=== PATIENT | male | born 1940 | race Caucasian/White ===

== ENCOUNTER 2019-10-09 11:42 | Inpatient (IN) | payer MEDICARE ==
[2019-10-09] MEDS ORDERED: Aspirin TAB* 325 MG PO ONE (12:11)
--- NOTE | 2019-10-09 12:22 | ED ---
Abdominal Pain/Male - HPI Summary HPI Summary: This patient is an 79 y/o male presenting to [facility] c/o abdominal pain. Patient states yesterday he had pain in the epigastric area/lower chest area. He notes he also developed nausea and vomiting yesterday. Today patient states he has mild pain in his right upper abdomen. Patient reports he was sent to the ED by his primary care provider because he was told he had a small heart attack. Patient denies fever, chills, shortness of breath, headache. Home Medications Medication Instructions Recorded Confirmed Type Dulaglutide (NF) [Trulicity (NF)] 0.5 ml SUBCUT WEEKLY 10/09/19 10/09/19 History Empagliflozin (NF) [Jardiance (Nf)] 10 mg PO QAM 10/09/19 10/09/19 History Insulin Detemir [Levemir Flextouch 50 units SUBCUT DAILY 10/09/19 10/09/19 History 100 units/ml 3 ml x 5 Pens] Losartan/Hydrochlorothiazide 1 tab PO DAILY 10/09/19 10/09/19 History [Losartan Potassium/Hydroc 100-12.5 mg] Omeprazole (Nf) [Prilosec (NF)] 40 mg PO BID 10/09/19 10/09/19 History Rosuvastatin (NF) [Crestor (NF)] 40 mg PO DAILY 10/09/19 10/09/19 History Venlafaxine EXT RELEASE CAP* 37.5 mg PO DAILY 10/09/19 10/09/19 History [Effexor Xr CAP*] glipiZIDE TAB* [Glucotrol TAB*] 2.5 mg PO QPM 10/09/19 10/09/19 History glipiZIDE TAB* [Glucotrol TAB*] 5 mg PO BID 10/09/19 10/09/19 History metFORMIN* [Glucophage 500 MG TAB 1,500 mg PO .WITH EVENING MEAL 10/09/19 History *] - History of Current Complaint Chief Complaint: EDShortnessOfBreath Stated Complaint: FEVER, SORE THROAT Hx Obtained From: Patient Onset/Duration: Lasting Days - 1, Still Present Timing: Lasting Days - 1 Severity Currently: Mild Pain Scale Used: 0-10 Numeric Location: Other - right upper quadrant Radiates: No Aggravating Factor(s): Nothing Alleviating Factor(s): Nothing Associated Signs And Symptoms: Positive: Chest Pain, Nausea, Vomiting. Negative : Fever, Other - NEGATIVE: shortness of breath, headache - Allergies/Home Medications Allergies/Adverse Reactions: Allergies Allergy/AdvReac Type Severity Reaction Status Date / Time Penicillins Allergy Rash Verified 10/09/19 12:38 Home Medications: Home Medications Dulaglutide (NF) [Trulicity (NF)] 0.5 ml SUBCUT WEEKLY 10/09/19 [History Confirmed 10/09/19] Empagliflozin (NF) [Jardiance (Nf)] 10 mg PO QAM 10/09/19 [History Confirmed ] Insulin Detemir [Levemir Flextouch 100 units/ml 3 ml x 5 Pens] 50 units SUBCUT DAILY 10/09/19 [History Confirmed 10/09/19] Losartan/Hydrochlorothiazide [Losartan Potassium/Hydroc 100-12.5 mg] 1 tab PO DAILY 10/09/19 [History Confirmed 10/09/19] Omeprazole (Nf) [Prilosec (NF)] 40 mg PO BID 10/09/19 [History Confirmed ] Rosuvastatin (NF) [Crestor (NF)] 40 mg PO DAILY 10/09/19 [History Confirmed ] Venlafaxine EXT RELEASE CAP* [Effexor Xr CAP*] 37.5 mg PO DAILY 10/09/19 [ History Confirmed 10/09/19] glipiZIDE TAB* [Glucotrol TAB*] 2.5 mg PO QPM 10/09/19 [History Confirmed ] glipiZIDE TAB* [Glucotrol TAB*] 5 mg PO BID 10/09/19 [History Confirmed 10/09/19 ] metFORMIN* [Glucophage 500 MG TAB *] 1,500 mg PO .WITH EVENING MEAL 10/09/19 [ History Confirmed 10/09/19] Atorvastatin* [Lipitor 80 MG*] 80 mg PO DAILY tab 10/10/19 [Rx] HYDROmorphone INJ1* [Dilaudid INJ1S*] 1.5 mg IV SLOW PU Q4H PRN syringe [Rx] Insulin GLARGINE(*) [Lantus 100 units/ml 10 ml VIAL (*)] 40 units SUBCUT Q24H unit 10/10/19 [Rx] Insulin LISPRO* [HumaLOG 100 units/ml 3 ml VIAL *] 0 units SUBCUT ACHS unit [Rx] Pantoprazole TAB * [Protonix TAB*] 40 mg PO BID tab 10/10/19 [Rx] Venlafaxine EXT RELEASE CAP* [Effexor Xr CAP*] 37.5 mg PO DAILY cap.sr [Rx] Zosyn per Pharmacy* 1 note FOLLOW UP .ZOSYN PER PHARMACY note 10/10/19 [Rx] PMH/Surg Hx/FS Hx/Imm Hx Previously Healthy: No - PMHx of obesity Endocrine/Hematology History: Reports: Hx Diabetes - type 2, Other Endocrine/ Hematological Disorders - hypomagnesemia Cardiovascular History: Reports: Hx Hypercholesterolemia, Hx Hypertension History: Reports: Hx Benign Prostatic Hyperplasia Infectious Disease History: Denies: Traveled Outside the [place] in Last 30 Days - Family History Known Family History: Negative: Cardiac Disease - Social History Alcohol Use: None Alcohol Amount: quit drinking in 2007 Substance Use Type: Reports: None Smoking Status (MU): Never Smoked Tobacco Review of Systems Negative: Fever, Chills Positive: Chest Pain Negative: Shortness Of Breath Positive: Abdominal Pain, Vomiting, Nausea Negative: Headache All Other Systems Reviewed And Are Negative: Yes Physical Exam - Summary Physical Exam Summary: VITAL SIGNS: Reviewed. GENERAL: Patient is a well-developed and nourished male who is lying comfortable in the stretcher. Patient is not in any acute respiratory distress. HEAD AND FACE: No signs of trauma. No ecchymosis, hematomas or skull depressions. No sinus tenderness. EYES: PERRLA, EOMI x 2, No injected conjunctiva, no nystagmus. EARS: Hearing grossly intact. Ear canals and tympanic membranes are within normal limits. MOUTH: Oropharynx within normal limits. NECK: Supple, trachea is midline, no adenopathy, no JVD, no carotid bruit, no c- spine tenderness, neck with full ROM. CHEST: Symmetric, no tenderness at palpation LUNGS: Clear to auscultation bilaterally. No wheezing or crackles. CVS: Regular rate and rhythm, S1 and S2 present, no murmurs or gallops appreciated. ABDOMEN: Soft, mild tenderness in the right upper quadrant. No signs of distention. No rebound no guarding, and no masses palpated. Bowel sounds are normal. EXTREMITIES: FROM in all major joints, no edema, no cyanosis or clubbing. NEURO: Alert and oriented x 3. No acute neurological deficits. Speech is normal and follows commands. SKIN: Dry and warm Triage Information Reviewed: Yes Vital Signs On Initial Exam: Initial Vitals Pulse BP Pulse Ox 113 132/71 93 10/09/19 12:37 10/09/19 12:37 10/09/19 12:37 Temperature: 99.2 F temporal Vital Signs Reviewed: Yes Procedures - Sedation Patient Received Moderate/Deep Sedation with Procedure: No Diagnostics - Laboratory Result Diagrams: 10/10/19 05:41 10/10/19 05:41 Lab Statement: Any lab studies that have been ordered have been reviewed, and results considered in the medical decision making process. - Radiology Chest XR Radiology Interpretation Completed By: Radiologist Summary of Radiographic Findings: IMPRESSION: Elevation of the right hemidiaphragm suggestive of diaphragmatic paralysis. Dr. Ricketts has reviewed this report. - Ultrasound No standard instances Ultrasound Interpretation Completed By: Radiologist Summary of Ultrasound Findings: Abdomen US IMPRESSION: #. Biliary sludge in the gallbladder with mild gallbladder wall thickening and small volume of pericholecystic fluid. No visualized gallstones. #. Negative for sonographic Duran's sign. #. Negative for biliary dilatation. #. Hepatosteatosis. Dr. Ricketts has reviewed this report. - EKG 1233 Cardiac Rate: Tachycardia - at 114 bpm EKG Rhythm: Sinus Tachycardia EKG Comparison: Other - No previous EKG for comparison Summary of EKG Findings: EKG at 1233 shows sinus tachycardia at a rate of 114 bpm. No STEMI. Q waves in leads III, aVF, V1-V3. Inverted T wave in V6. No old EKG for comparison. This EKG was interpreted and reviewed by ED physician. Re-Evaluation - Re-Evaluation First Eval Re-Evaluation Time: 15:20 Comment: Surgical PAReza, in to see patient. Abdominal Pain Male Course/Dx - Course Assessment/Plan: This patient is an 79 y/o male presenting to [facility] c/o abdominal pain. Patient states yesterday he had pain in the epigastric area/ lower chest area. He notes he also developed nausea and vomiting yesterday. Today, patient states he has mild pain in his right upper abdomen. Patient reports he was sent to the ED by his primary care provider because he was told he had a small heart attack. Patient denies fever, chills, shortness of breath, headache. In the ED course the patient was placed in a sheriffs officer, IV access was obtained, IV fluids were started. Past medical records reviewed. CXR impression: Elevation of the right diaphragm suggestive of diaphragmatic paralysis. Blood test w/o a significant abnormality except for WBCs of 20.4, absolute neutrophils is 18.6, sodium 130, chloride 94, BUN is 26, creatinine 1.53, glucose is 284, magnesium is 1.2, total bilirubin is 3, CRP is 264.69. RUQ U/S IMPRESSION: #. Biliary sludge in the gallbladder with mild gallbladder wall thickening and small volume of pericholecystic fluid. No visualized gallstones. #. Negative for sonographic Duran's sign. #. Negative for biliary dilatation. #. Hepatosteatosis. At 2:36 PM I discussed the case with Dr. Todd, surgeon, and he will come to see the patient in the ED. GISELA Thayer, working with Dr. Todd assessed the patient and recommends admission to the hospitalist since there is not an immediate need for surgery. At 3:42 PM: I discussed my physical exam and test results with Dr. Soares from the hospitalist services and she agrees to admit the patient to her services. The patient is hemodynamically stable. - Diagnoses Provider Diagnoses: Acute cholecystitis - Provider Notifications Discussed Care Of Patient With: Edward Todd Time Discussed With Above Provider: 14:30 Instructed by Provider To: Other - Discussed with Dr. Todd, surgeon, who will come see patient in the ED. [15:41] Discussed with Dr. Soares, hospitalist, who accepted the patient for admission. - Critical Care Time Critical Care Statement: Critical care time is provided exclusive of any time spent performing procedures. Discharge ED - Sign-Out/Discharge Documenting (check all that apply): Patient Departure - Admit to [facility] - Discharge Plan Condition: Stable Disposition: ADMITTED TO [facility] - Billing Disposition and Condition Condition: STABLE Disposition: Admitted to [facility] - Attestation Statements Document Initiated by Scribe: Yes Documenting Scribe: Nancy Gonzalez Provider For Whom Scribe is Documenting (Include Credential): Adam Ricketts MD Scribe Attestation: I, Nancy Gonzalez, scribed for Adam Ricketts MD on 10/10/19 at 1223. Scribe Documentation Reviewed: Yes Provider Attestation: The documentation as recorded by the scribe, Nancy Gonzalez accurately reflects the service I personally performed and the decisions made by me, Adam Ricketts MD Status of Scribe Document: Viewed
[2019-10-09 13:17] LABS: ABS Basophils 0.1 10^3/ul (0-0.2); ABS Lymphocytes 0.7 10^3/ul (1.0-4.8); ABS Neutrophils 18.6 10^3/ul (1.5-7.7); Eosinophil % 0.1 %; Hematocrit 46 % (42-52); Hemoglobin 15.6 g/dL (14.0-18.0); Lymphocyte % 3.6 %; Mean Corpuscular HGB Conc 34 g/dL (31-36); Mean Corpuscular Hemoglobin 28 pg (27-31); Mean Corpuscular Volume 82 fL (80-94); Mean Platelet Volume 7.8 fL (7.4-10.4); Nucleated Red Blood Cells % 0.1; Platelet Count 221 10^3/uL (150-450); Red Blood Count 5.59 10^6 /uL (4.18-5.48); Red Cell Distribution Width 13 % (10-15); White Blood Count 20.4 10^3/uL (3.5-10.8)
[2019-10-09 13:29] LABS: ALT 18 U/L (7-52); AST 15 U/L (13-39); Albumin 3.6 g/dL (3.2-5.2); Albumin/Globulin Ratio 1.1 (1-3); Alkaline Phosphatase 62 U/L (34-104); Anion Gap 10 mmol/L (2-11); Blood Urea Nitrogen 26 mg/dL (6-24); CO2 Carbon Dioxide 26 mmol/L (22-32); Chloride 94 mmol/L (101-111); Creatine Kinase 100 U/L (10-223); EGFR African American 53.3 (>60); Globulin 3.2 g/dL (2-4); Glucose 284 mg/dL (70-100); Magnesium 1.2 mg/dL (1.9-2.7); Potassium 3.6 mmol/L (3.5-5.0); Sodium 130 mmol/L (135-145); Total Protein 6.8 g/dL (6.4-8.9)
[2019-10-09 13:32] LABS: Troponin I 0.01 ng/mL (<0.03)
[2019-10-09 13:34] LABS: CKMB ng/mL 2.3 ng/mL (0.6-6.3)
[2019-10-09] MEDS ORDERED: Magnesium Sulfate 1 GM IV* 1 GM/100 ML BAG IV ONE (13:50)
[2019-10-09 13:58] LABS: TSH (Thyroid Stimulating Horm) 1.17 mcIU/mL (0.34-5.60)
[2019-10-09] MEDS ORDERED: NS 0.9% 1000 ML** 1,000 ML IV SCH (14:00)
[2019-10-09 14:04] LABS: C Reactive Protein 264.69 mg/L (<8.01)
[2019-10-09 14:53] LABS: Amylase 17 U/L (29-103)
[2019-10-09 16:01] LABS: Urine Appearance Cloudy; Urine Bilirubin Negative (Negative); Urine Blood 1+ (Negative); Urine Color Yellow; Urine Glucose 3+(>=500 mg/dL) (Negative); Urine Ketones Trace (Negative); Urine Nitrite Negative (Negative); Urine Protein 2+(100 mg/dL) (Negative); Urine Specific Gravity 1.021 (1.010-1.030); Urine Urobilinogen Positive (Negative)
--- NOTE | 2019-10-09 16:03 | PN ---
Progress Note - Progress Note Date of Service: 10/09/19 Note: Brief Surgery Note: (full consult dictated) S: 79 yo male w/ sudden onset of midepigastric pain Tuesday pm (after eating chicken wings earlier in the day). This then moved to the RUQ where it has remained. Associated w/ nausea and vomiting Tuesday, but not since. He was seen in his PCP (Dr. Loera) office yesterday and was told to come to the ED by ambulance 2/2 ECG changes. He is not sure why he didn't come, but ultimately came in today because of persistent pain. His pain is actually better today ( only 1-2/10, though worse w/ deep breath, vs 10/10 pain on Tuesday). He denies fever/chills. No prior similar episodes. No change in the color of urine or stool. No prior abd surgery. PMHx: DM (> 15 yr, w/ most recent A1C of ~ 10); HTN; HLD; GERD; OA of lower back , hips, knees, shoulders; depression. Denies cardiac hx. O: T 99.2 BP 127/75 P 105- 112 R 19 Gen: WN WD male, appears younger than stated age, in NAD Heart: tachy, but reg Lungs: clear Abd: obese; +BS; soft; moderate tenderness w/ pos Duran sign RUQ. No masses or organomegaly. Reducible nontender umb hernia. Labs: WBC 20.4 Hgb 15.6 lytes: Na 130 K 3.6 Mg 1.2 BUN 26 creat 1.53 gluc 284 LA 1.4 t bili 3 (other LFTs nl); amylase & lipase nl US: GB "sludge" w/ wall thickening at 4 mm and a small amt of pericholecystic fluid; CBD nl at 4 mm ECG w/ Q waves and T wave changes but no prior for comparison (trop and CK normal) A: acute cholecystitis P: admission (to [facility] [place]); IV abx; clear liqs; repeat labs in a.m. Discussed w/ Dr. Todd, who will also see patient. Patient understands and agrees. He also understands the potential for surgical intervention (lap benny) either acutely if no improvement, or in the future on a semi-elective basis.
[2019-10-09 16:13] LABS: Urine Bacteria Absent (Absent); Urine Granular Casts Present (Absent); Urine Red Blood Cell Trace(0-2/hpf) (Absent); Urine Squamous Epithelial Cell Present (Absent); Urine White Blood Cell Trace(0-5/hpf) (Absent)
[2019-10-09] MEDS ORDERED: Piperacillin/Tazobac ADVAN(*) 3.375 GM in NS 0.9% 100 ML* 100 ML IVPB ONE (16:31)
[2019-10-09] MEDS ORDERED: Dextrose 50% Syringe 50 ML* 25 GM/50 ML SYRINGE IV PUSH PRN (16:34)
[2019-10-09] MEDS ORDERED: Morphine INJ* 2 MG/ML 1 ML SYRINGE (TWO MG - NEW SYRINGE VERSION) IV PRN (16:43)
[2019-10-09] MEDS ORDERED: Magnesium Sulfate 2 GM IV* 2 GM/50 ML BAG IVPB ONE (16:45)
[2019-10-09] MEDS ORDERED: Zosyn per Pharmacy* NOTE FOLLOW UP SCH ×2 (17:00)
--- NOTE | 2019-10-09 17:30 | CONS ---
CC: Dr. Loera, [place]* SURGICAL CONSULT NOTE: DATE OF CONSULT: 10/09/19 ATTENDING SURGEON: Dr. Edward Todd. CHIEF COMPLAINT: Abdominal pain. HISTORY OF PRESENT ILLNESS: This is an 79-year-old male who states that Tuesday evening he noted sudden onset of abdominal pain in the epigastric region. This was severe (up to 10/10) and steady and was associated with both nausea and some limited vomiting on Tuesday. He previously had some chicken wings to eat earlier in the day. He denies fever or chills. He denies diarrhea. He did have normal bowel movement a couple of days ago. He presented to his PCP office yesterday, at which time EKG changes suggested an acute cardiac problem and he was advised to come to the ED by ambulance. He refused. Because of persistent symptoms, he presented to the ED today. He states that at the present time pain at rest is approximately 1- 2/10, though worse if he takes a deep breath or with palpation. He denies any similar previous episodes. He has not noted any change in the color of his urine or stools. He denies any symptoms. There is no definite known family history of gallbladder disease. He has not had any prior abdominal surgeries. PAST MEDICAL HISTORY: Type 2 diabetes for greater than 15 years (he states that his most recent A1c was around 10). He is also treated for hypertension, GERD, hyperlipidemia, and depression. He has a history of osteoarthritis of the lower back as well as hips, knees, and shoulders. He denies history of heart disease, asthma, COPD, or personal history of cancer. 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 Dumont last week for evaluation of same with tentative procedure or biopsy planned possibly for this week). CURRENT MEDICATIONS AT HOME: 1. Dulaglutide 0.5 mL subcutaneously once weekly. 2. Empagliflozin 10 mg once daily. 3. Insulin detemir 50 units q.p.m. 4. Glipizide 5 mg b.i.d. 5. Metformin 500 mg b.i.d. 6. Losartan/HCTZ 100/12.5 once daily. 7. Omeprazole 40 mg b.i.d. 8. Rosuvastatin 40 mg once daily. 9. Venlafaxine extended release 37.5 mg once daily. DRUG ALLERGIES: PENICILLIN (reaction not specified). FAMILY HISTORY: Negative for gallbladder disease. SOCIAL HISTORY: The patient is . He previously worked in a [employer]. He denies use of tobacco. He used to drink alcohol excessively at times, but not in recent years. He denies use of recreational drugs. REVIEW OF SYSTEMS: General: As above. Weight has been stable. No other recent constitutional or acute symptoms. Skin: No recent rashes or lesions. HEENT: Recently seen by Dr. Dumont regarding evaluation of laryngeal polyps. No other acute problems reported. Cardiovascular: As above. No additions. Respiratory: No additions. GI: As above. : No additions. Endocrine: Type 2 diabetes. No history of thyroid dysfunction. PHYSICAL EXAM: Height 6 feet 1 inch, weight 201 pounds, temperature 99.2, blood pressure 127/75, pulse 105 to 112, respirations 19, room air saturation 94 %. General: Well-nourished, well-developed male, in no acute distress, appearing fairly comfortable and younger than his stated age of 79. Skin: Warm and dry. No suspicious rashes or lesions. HEENT: Pupils are equal, round , and reactive. EOMs intact. No conjunctival pallor or scleral icterus. Oropharynx: Teeth in good repair. No intraoral lesions. Neck: No lymphadenopathy, thyromegaly, or masses. Heart: Regular rate and rhythm. Mildly tachycardic. No murmur appreciated. Lungs: Clear to auscultation. No rales or wheezes. Abdomen: Mildly obese. Bowel sounds present. Small, nontender, reducible umbilical hernia. Abdomen is generally soft, but with moderate tenderness in the right upper quadrant and positive Duran sign. No palpable masses or organomegaly. No palpable hernias other than at the umbilicus. Back: No spinous process or CVA tenderness. Extremities: No edema. Neurological: Grossly intact, though he is not always consistent in his history. DIAGNOSTIC STUDIES/LAB DATA: Of note, white blood cell count 20,400, hemoglobin 15.6, hematocrit 46. Electrolytes notable for sodium of 130, potassium of 3.6, chloride of 94, magnesium of 1.2, lactic acid is normal at 1.4 , BUN and creatinine are elevated at 26 and 1.53, glucose is 284. CRP is 265. Total bilirubin is 3 (no previous for comparison). Other liver function tests are normal as are amylase and lipase. Troponin is 0.01, CK-MB is normal at 2.3. Diagnostic imaging includes a chest x-ray showing elevated right hemidiaphragm. Ultrasound of the right upper quadrant shows gallbladder sludge with gallbladder wall thickening of 4.3 mm and a small amount of pericholecystic fluid. There is slight increased echogenicity of the liver. The common bile duct is normal at 4 mm. IMPRESSION: Acute cholecystitis. PLAN: Case was discussed with Dr. Todd as well as Dr. Soares. He will be admitted to the hospitalist service with initiation of IV antibiotics as well as pain control and management of his diabetes and medical comorbidities. Repeat lab work in the morning with serial abdominal exams. Hopefully, the patient will improve with medical management at the present time. He understands that if he is not improving he may require surgical intervention acutely during this admission (i.e., laparoscopic cholecystectomy) and/or cholecystectomy may be recommended at a later date. GISELA BURKS [id number]/[facility] #: [id number] MOUNIKA
[2019-10-09] MEDS: NS 0.9% 1000 ML** 1,000 ML IV SCH ×2 (17:49→22:18)
--- NOTE | 2019-10-09 18:44 | HP ---
CC: Dr. Loera* HISTORY AND PHYSICAL: DATE OF ADMISSION: 10/09/19 TIME OF ADMISSION: 4:30 p.m. PRIMARY CARE PHYSICIAN: Dr. Loera. CHIEF COMPLAINT: Abdominal pain. HISTORY OF PRESENT ILLNESS: This is an 79-year-old male with a history of diabetes and hypertension, who presents to the emergency department with 2 days of abdominal pain. The pain started Tuesday night and he localized the pain to the epigastric area and right upper quadrant without radiation. He had eaten ham and wings for Easter dinner, and shortly after that, developed nausea and vomiting associated with the pain. He was able to sleep, and the following day , he went to his primary care physician's office who got an EKG and instructed him to come to the emergency department due to concerns of a myocardial infarction. He declined, he went home and continued to have pain, but had no further nausea and vomiting. He localized the pain again to the right upper quadrant without radiation. It was not associated with diarrhea or fevers or any further nausea and vomiting. This morning, Dr. Dumont's nurse called him because he was supposed to see Dr. Dumont regarding a laryngeal mass biopsy and she instructed him to come to the emergency department. PAST MEDICAL HISTORY: 1. Type 2 diabetes. 2. Hypertension. 3. 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 4. Hyperlipidemia. PAST SURGICAL HISTORY: He has history of throat polyps 15 years ago that were removed. No other surgeries. MEDICATIONS: Home medications he takes: 1. Detemir 50 units in the evening. 2. Trulicity 0.5 mL weekly. 3. Jardiance 10 mg daily. 4. Glipizide 7.5 mg in the evening and 5 mg in the morning. 5. Losartan plus HCTZ 100/12.5 mg daily. 6. Metformin 1500 mg daily. 7. Omeprazole 40 mg b.i.d. 8. Rosuvastatin 40 mg daily. 9. Venlafaxine 37.5 mg daily. ALLERGIES: PENICILLIN. FAMILY HISTORY: Significant for an unknown type of cancer. SOCIAL HISTORY: He never smoked tobacco. He does not drink alcohol. He lives with his , Veronica, who is his healthcare proxy. He is full code. REVIEW OF SYSTEMS: He denies fevers, chills, chest pain, shortness of breath, weight gain, weight loss, sick contacts. The remainder of the review of systems is as per the HPI. PHYSICAL EXAMINATION GENERAL: Alert, well-appearing man who appears younger than stated age. VITAL SIGNS: Temperature 99.2, heart rate 101, respiratory rate 19, pulse ox 95 % on room air, blood pressure 143/79. HEENT: Pupils equal, round, and reactive to light. Oral mucosa is very dry. Voice is hoarse. NECK: No JVP or adenopathy. CHEST: He is mildly tachycardic with no murmurs. His lungs are clear bilaterally. ABDOMEN: Soft, tender in the right upper quadrant with a positive Duran's sign. No CVA tenderness. Bowel sounds are normoactive. EXTREMITIES: No edema, rashes, or ulcers. NEUROLOGIC: He is oriented and appropriate. Occasionally forgetful. Strength is 5/5 in all extremities. DIAGNOSTIC STUDIES/LAB DATA: White blood cells 20.4, hemoglobin 15.6, and platelets 221. PTT 37. Sodium 130, potassium 3.6, chloride 94, BUN 26, creatinine 1.53, glucose 284. Lactic acid 1.4. Total bilirubin 3, magnesium 1.2. CRP 264.69. Troponin 0.01, 0.01. BNP 66. TSH 1.17. Abdominal ultrasound: Biliary sludge in the gallbladder with mild gallbladder wall thickening and small volume of pericholecystic fluid. No visualized gallstones. Negative for sonographic Duran's sign. Negative for biliary dilatation. Hepatic steatosis. Chest x-ray: Elevation of the right hemidiaphragm suggestive of diaphragmatic paralysis. EKG: Sinus tachycardia. Left axis deviation. Normal intervals. No ST or T wave changes. There are Q waves in III and aVF. ASSESSMENT AND PLAN: This is an 79-year-old man with a history of diabetes and hypertension, who presents to the emergency department with 2 days of abdominal pain and is found to have acute cholecystitis. 1. Acute cholecystitis. Surgery has already been consulted by the emergency department and Reza has evaluated the patient. Nonoperative management will be attempted and I will start him on piperacillin-tazobactam and I believe he needs more IV fluid resuscitation, which I will add now. I will add some pain control. Of note, he does have a remote history of an allergy to PENICILLIN, but he thinks he last received it when he was 7 years old and his reaction was rash. I will keep him on clear liquids. 2. Sepsis, likely related to cholecystitis. He did not receive the full sepsis IV fluids in the emergency department because there was some concern for history of congestive heart failure; however, he denies that to me and he has no evidence of congestive heart failure on my exam. So, I am giving him the full 30 cc/kg of IV fluids along with Zosyn. His lactic acid is normal. 3. Type 2 diabetes. I will reduce his dose of long-acting insulin while he is on clear liquids only and septic. I reduced his long-acting insulin to 30 units daily along with fingersticks and insulin sliding scale. 4. Hypertension. I will hold his losartan and HCTZ as he was hypotensive when he arrived; these can be added back as needed. 5. Hypomagnesemia. Likely related to poor p.o. intake. Replete now. 6. DVT prophylaxis. Heparin subcutaneous. 7. Acute kidney injury versus chronic kidney disease. I have no baseline creatinine. We will attempt to get records from his PCP. 8. Abnormal EKG. He has evidence of Q waves on his EKG. I have requested records from his PCP of old EKGs as well. 9. Full code. [id number]/[facility] #: [id number] MTDD
[2019-10-09] MEDS: Morphine INJ* 2 MG/ML 1 ML SYRINGE (TWO MG - NEW SYRINGE VERSION) IV PRN (19:24)
[2019-10-09] MEDS ORDERED: Insulin GLARGINE(*) 1 UNITS UNIT SUBCUT SCH (20:00)
[2019-10-09] MEDS: Insulin LISPRO* 1 UNITS UNIT SUBCUT SCH (20:53)
[2019-10-09] MEDS: Pantoprazole TAB * 40 MG TAB PO SCH (20:55)
[2019-10-09] MEDS: Heparin VIAL(*) 5000 UNITS/ML VIAL (FIVE THOUSAND) SUBCUT SCH (22:21)
[2019-10-09] MEDS: ZOSYN 3.375 GM Q8H per EXTENDED INFUSION IVPB SCH ×2 (22:23)
[2019-10-10] MEDS: Morphine INJ* 2 MG/ML 1 ML SYRINGE (TWO MG - NEW SYRINGE VERSION) IV PRN (01:58)
[2019-10-10] MEDS: ZOSYN 3.375 GM Q8H per EXTENDED INFUSION IVPB SCH ×2 (05:49)
[2019-10-10] MEDS: Heparin VIAL(*) 5000 UNITS/ML VIAL (FIVE THOUSAND) SUBCUT SCH (05:51)
[2019-10-10 06:00] LABS: ABS Basophils 0.1 10^3/ul (0-0.2); ABS Lymphocytes 0.6 10^3/ul (1.0-4.8); ABS Neutrophils 19.5 10^3/ul (1.5-7.7); Hematocrit 41 % (42-52); Hemoglobin 14.2 g/dL (14.0-18.0); Lymphocyte % 3.1 %; Mean Corpuscular HGB Conc 35 g/dL (31-36); Mean Corpuscular Hemoglobin 28 pg (27-31); Mean Corpuscular Volume 81 fL (80-94); Mean Platelet Volume 7.7 fL (7.4-10.4); Platelet Count 202 10^3/uL (150-450); Red Blood Count 4.98 10^6 /uL (4.18-5.48); Red Cell Distribution Width 13 % (10-15); White Blood Count 21.2 10^3/uL (3.5-10.8)
[2019-10-10 06:04] LABS: INR 1.55 (0.82-1.09)
[2019-10-10 06:16] LABS: Albumin/Globulin Ratio 1.1 (1-3); BUN/Creatinine Ratio 14.1 (8-20); Calcium 8.2 mg/dL (8.6-10.3); EGFR Non-African American 37.2 (>60); Globulin 2.8 g/dL (2-4); Potassium 3.4 mmol/L (3.5-5.0); Total Bilirubin 2.7 mg/dL (0.2-1.0); Total Protein 5.8 g/dL (6.4-8.9)
--- NOTE | 2019-10-10 07:52 | PN ---
Subjective Date of Service: 10/10/19 Interval History: Pain was poorly controlled last night on morphine. BGs poorly controlled. He was able to eat some jello last night. He feels bad this morning because pain is still uncontrolled. No nausea, no fevers, no shortness of breath, no chest pain. Objective Active Medications: Atorvastatin Calcium (Lipitor*) 80 mg PO DAILY [facility] Dextrose (D50w Syringe 50 Ml*) 12.5 gm IV PUSH .FOR FS < 60 - SS PRN PRN Reason: FS < 60 Heparin Sodium (Porcine) (Heparin Vial(*)) 5,000 units SUBCUT Q8HR [facility] Last Admin: 10/10/19 05:51 Dose: 5,000 units Sodium Chloride (Ns 0.9% 1000 Ml) 1,000 mls @ 100 mls/hr IV PER RATE [facility] Last Admin: 10/09/19 22:18 Dose: 100 mls/hr Piperacillin Sod/Tazobactam (Sod 3.375 gm/ Sodium Chloride) 100 mls @ 25 mls/ hr IVPB Q8H [facility] Last Admin: 10/10/19 05:49 Dose: 25 mls/hr Insulin Glargine (Lantus(*)) 40 units SUBCUT Q24H [facility] Insulin Human Lispro (Humalog*) 0 units SUBCUT ACHS [facility]; Protocol Last Admin: 10/09/19 20:53 Dose: 10 unit Morphine Sulfate (Morphine Inj (Syringe))*) 4 mg IV Q4H PRN PRN Reason: PAIN - SEVERE Last Admin: 10/10/19 01:58 Dose: 4 mg Pantoprazole Sodium (Protonix Tab*) 40 mg PO BID [facility] Last Admin: 10/09/19 20:55 Dose: 40 mg Pharmacy Consult (Zosyn Per Pharmacy*) 1 note FOLLOW UP .ZOSYN PER PHARMACY [facility] Pneumococcal Polyvalent Vaccine (Pneumococcal Vac 23-Polyvalent*) 0.5 ml IM .ONCE ONE Stop: 10/10/19 09:01 Venlafaxine HCl (Effexor Xr Cap*) 37.5 mg PO DAILY [facility] Vital Signs - 8 hr 10/10/19 10/10/19 10/10/19 01:58 02:12 03:56 Temperature 98.9 F Pulse Rate 105 Respiratory 20 18 16 Rate Blood Pressure 123/58 (mmHg) O2 Sat by Pulse 93 Oximetry Oxygen Devices in Use Now: None Appearance: alert, ill appearing, uncomfortable Eyes: No Scleral Icterus Ears/Nose/Mouth/Throat: - - dry mucosa Respiratory: Symmetrical Chest Expansion and Respiratory Effort, Clear to Auscultation Cardiovascular: NL Sounds; No Murmurs; No JVD, RRR Abdominal: - - very tender to palpation in epigastric/RUQ region, + parker's sign Lymphatic: No Cervical Adenopathy Extremities: No Edema Skin: No Rash or Ulcers Neurological: Alert and Oriented x 3 Result Diagrams: 10/10/19 05:41 10/10/19 05:41 Assess/Plan/Problems-Billing Assessment: Mr. Schreiber is an 79 year old man with poorly controlled DM (a1c >10%) and HTN who presented to the ED 10/08 with 48 hours of abdominal pain and was found to have acute cholecystitis - Patient Problems (1) Acute cholecystitis Current Visit: Yes Status: Acute Code(s): K81.0 - ACUTE CHOLECYSTITIS SNOMED Code(s): 63483733 Comment: Surgery following, surgical plan pending clinical course Pip/tazo day 2 WBCs increasing today, bili decreasing Afebrile Continue pain control; switch morphine to dilaudid today Increase IVF (2) Sepsis Current Visit: Yes Status: Acute Comment: due to #1 needs more fluid resuscitation hemodynamically stable (3) Diabetes mellitus Current Visit: Yes Status: Acute Code(s): E11.9 - TYPE 2 DIABETES MELLITUS WITHOUT COMPLICATIONS SNOMED Code(s): 93946862 Comment: uncontrolled a1c from last week from PCPs office was >10% increase insulin coverage today --> NPH 10U now and then increase lantus to 40U tonight (4) HTN (hypertension) Current Visit: Yes Status: Acute Code(s): I10 - ESSENTIAL (PRIMARY) HYPERTENSION SNOMED Code(s): 65637427 Comment: normotensive off antihypertensives continue to hold given sepsis (5) Abnormal EKG Current Visit: Yes Status: Acute Code(s): R94.31 - ABNORMAL ELECTROCARDIOGRAM [ECG] [EKG] SNOMED Code(s): 792843364 Comment: will attempt to get old ekg from PCPs office troponins negative, but ekg suspicious for old inferior wall W[place] (6) JOEY (acute kidney injury) Current Visit: Yes Status: Acute Code(s): N17.9 - ACUTE KIDNEY FAILURE, UNSPECIFIED SNOMED Code(s): 58372474 Comment: will attempt to get old BMP from PCPs office as well increase IVF today
[2019-10-10] MEDS ORDERED: HYDROmorphone INJ1* 1 MG/ML SYRINGE IV SLOW PU PRN (07:54)
[2019-10-10] MEDS ORDERED: NS 0.9% 1000 ML** 1,000 ML IV SCH (08:01)
--- NOTE | 2019-10-10 08:11 | PN ---
Progress Note - Progress Note Date of Service: 10/10/19 Note: S: Pt states his pain has not improved. Tolerating clear liquid diet. No nausea , emesis, fever, SOB, chest pain. O: Temp Pulse Resp BP Pulse Ox 99.6 F 106 17 124/59 93 10/10/19 07:47 10/10/19 07:47 10/10/19 07:47 10/10/19 07:47 10/10/19 07:47 Laboratory Last Values WBC 21.2 10^3/uL (3.5-10.8) H 10/10/19 05:41 RBC 4.98 10^6 /uL (4.18-5.48) 10/10/19 05:41 Hgb 14.2 g/dL (14.0-18.0) 10/10/19 05:41 Hct 41 % (42-52) L 10/10/19 05:41 MCV 81 fL (80-94) 10/10/19 05:41 MCH 28 pg (27-31) 10/10/19 05:41 MCHC 35 g/dL (31-36) 10/10/19 05:41 RDW 13 % (10-15) 10/10/19 05:41 Plt Count 202 10^3/uL (150-450) 10/10/19 05:41 MPV 7.7 fL (7.4-10.4) 10/10/19 05:41 Neut % (Auto) 92.0 % 10/10/19 05:41 Lymph % (Auto) 3.1 % 10/10/19 05:41 [place] % (Auto) 4.5 % 10/10/19 05:41 Eos % (Auto) 0.0 % 10/10/19 05:41 Baso % (Auto) 0.4 % 10/10/19 05:41 Absolute Neuts (auto) 19.5 10^3/ul (1.5-7.7) H 10/10/19 05:41 Absolute Lymphs (auto) 0.6 10^3/ul (1.0-4.8) L 10/10/19 05:41 Absolute Monos (auto) 1.0 10^3/ul (0-0.8) H 10/10/19 05:41 Absolute Eos (auto) 0.0 10^3/ul (0-0.6) 10/10/19 05:41 Absolute Basos (auto) 0.1 10^3/ul (0-0.2) 10/10/19 05:41 Absolute Nucleated RBC 0.0 10^3/ul 10/10/19 05:41 Nucleated RBC % 0.0 10/10/19 05:41 INR (Anticoag Therapy) 1.55 (0.82-1.09) H 10/10/19 05:41 APTT 37.4 seconds (26.0-38.0) 10/09/19 12:54 Sodium 131 mmol/L (135-145) L 10/10/19 05:41 Potassium 3.4 mmol/L (3.5-5.0) L 10/10/19 05:41 Chloride 97 mmol/L (101-111) L 10/10/19 05:41 Carbon Dioxide 23 mmol/L (22-32) 10/10/19 05:41 Anion Gap 11 mmol/L (2-11) 10/10/19 05:41 BUN 25 mg/dL (6-24) H 10/10/19 05:41 Creatinine 1.77 mg/dL (0.67-1.17) H 10/10/19 05:41 Est GFR ( Amer) 45.0 (>60) 10/10/19 05:41 Est GFR (Non-Af Amer) 37.2 (>60) 10/10/19 05:41 BUN/Creatinine Ratio 14.1 (8-20) 10/10/19 05:41 Glucose 308 mg/dL (70-100) H 10/10/19 05:41 POC Glucose (mg/dL) 391 mg/dL (70-100) H 10/09/19 20:47 Lactic Acid 1.4 mmol/L (0.5-2.0) 10/09/19 12:54 Calcium 8.2 mg/dL (8.6-10.3) L 10/10/19 05:41 Magnesium 1.2 mg/dL (1.9-2.7) L 10/09/19 12:54 Total Bilirubin 2.70 mg/dL (0.2-1.0) H 10/10/19 05:41 AST 21 U/L (13-39) 10/10/19 05:41 ALT 25 U/L (7-52) 10/10/19 05:41 Alkaline Phosphatase 71 U/L (34-104) 10/10/19 05:41 Total Creatine Kinase 100 U/L (10-223) 10/09/19 12:54 CK-MB (CK-2) 2.3 ng/mL (0.6-6.3) 10/09/19 12:54 Troponin I 0.01 ng/mL (<0.03) 10/09/19 18:58 C-Reactive Protein 264.69 mg/L (<8.01) H 10/09/19 12:54 B-Natriuretic Peptide 66 pg/mL (<=100) 10/09/19 12:54 Total Protein 5.8 g/dL (6.4-8.9) L 10/10/19 05:41 Albumin 3.0 g/dL (3.2-5.2) L 10/10/19 05:41 Globulin 2.8 g/dL (2-4) 10/10/19 05:41 Albumin/Globulin Ratio 1.1 (1-3) 10/10/19 05:41 Amylase 17 U/L (29-103) L 10/09/19 12:54 Lipase < 10 U/L (11.0-82.0) L 10/09/19 12:54 TSH 1.17 mcIU/mL (0.34-5.60) 10/09/19 12:54 Urine Color Yellow 10/09/19 12:11 Urine Appearance Cloudy 10/09/19 12:11 Urine pH 6.0 (5-9) 10/09/19 12:11 Ur Specific [place] 1.021 (1.010-1.030) 10/09/19 12:11 Urine Protein 2+(100 mg/dl) (Negative) A 10/09/19 12:11 Urine Ketones Trace (Negative) A 10/09/19 12:11 Urine Blood 1+ (Negative) A 10/09/19 12:11 Urine Nitrate Negative (Negative) 10/09/19 12:11 Urine Bilirubin Negative (Negative) 10/09/19 12:11 Urine Urobilinogen Positive (Negative) A 10/09/19 12:11 Ur Leukocyte Esterase Negative (Negative) 10/09/19 12:11 Urine WBC (Auto) Trace(0-5/hpf) (Absent) 10/09/19 12:11 Urine RBC (Auto) Trace(0-2/hpf) (Absent) 10/09/19 12:11 Ur Squamous Epith Cells Present (Absent) A 10/09/19 12:11 Urine Bacteria Absent (Absent) 10/09/19 12:11 Hyaline Casts Present (Absent) A 10/09/19 12:11 Granular Casts Present (Absent) A 10/09/19 12:11 Urine Glucose 3+(>=500 mg/dl) (Negative) A 10/09/19 12:11 PEX General: Alert, in NAD. HEENT: Oropharynx clear. PERRLA. Heart: RRR. Lungs: CTAB. ABD: BS present. Nondistended. Tender in RUQ, + parker's sign. No guarding or rebound tenderness. Extremities: Distal pulses intact BL. No edema. Calves soft and nontender. Assessment and plan: 79 yo M with acute cholecystitis. Continue IV abx, IV fluids. Pain control. Tot bili is lower today. May require surgical intervention (laparoscopic cholecystectomy) if no improvement.
[2019-10-10 08:16] LABS: Magnesium 1.4 mg/dL (1.9-2.7)
[2019-10-10] MEDS ORDERED: KCL 20 MEQ/100 ML IVPREMIX* 20 MEQ/100 ML BAG IV ONE (08:30)
[2019-10-10] MEDS ORDERED: Insulin NPH(*) 1 UNITS UNIT SUBCUT ONE (08:56)
[2019-10-10] MEDS ORDERED: Magnesium Sulfate 2 GM IV* 2 GM/50 ML BAG IVPB ONE (08:57)
[2019-10-10] MEDS ORDERED: Pneumococcal *Vac Polyvalent 0.5 ML VIAL IM ONE (09:00)
[2019-10-10] MEDS ORDERED: Atorvastatin* 80 MG TAB PO SCH (09:00)
[2019-10-10] MEDS ORDERED: Venlafaxine EXT RELEASE CAP* 37.5 MG PO SCH (09:00)
[2019-10-10] MEDS: Insulin LISPRO* 1 UNITS UNIT SUBCUT SCH ×2 (09:30→12:04)
[2019-10-10] MEDS: Pantoprazole TAB * 40 MG TAB PO SCH (09:31)
--- NOTE | 2019-10-10 09:42 | PN ---
Progress Note - Progress Note Date of Service: 10/10/19 Note: Patient seen and examined Workup-labs and US reviewed Care discussed with Jamie Soares with Hospitalist service He is having more pain RUQ No fever but HR up PEX: Appears uncomfortable Abd is soft and distended. BS decreased. Tenderness with guarding RUQ with localized peritoneal signs-no generalized abdominal pain IMP: Acute cholecystitis WBC elevated from yesterday, BS elevated and appears septic Discussed with Dr. Soares. She feel he is a high operative risk for cholecystectomy. He is failing medical care with IV antibiotics and I'm concerned he will worsen. Recommend percutaneous drainage as initial treatment course in light of his present condition and underlying medical problems. IR not available here at [facility] this week. Will transfer to a higher level of care where IR services available today. All discussed with patient.
--- NOTE | 2019-10-10 11:36 | TRS ---
CC: Dr. Loera, [facility] Phys[facility]* DATE OF ADMISSION: 10/09/2019. DATE OF TRANSFER: 10/10/2019. 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 He has been accepted to [facility] by Dr. Zheng of the Medicine Service. PRINCIPAL DISCHARGE DIAGNOSES: 1. Acute cholecystitis. 2. Sepsis. 3. Abnormal EKG. SECONDARY DISCHARGE DIAGNOSES: 1. Poorly controlled diabetes. 2. Hypertension. 3. Acute kidney injury. MEDICATIONS FOR TRANSFER: 1. Atorvastatin 80 mg daily. 2. Dilaudid 1.5 mg IV slow push q.4 prn pain. 3. Lantus 40 units at bedtime. 4. Lispro sliding scale a.c., at bedtime. 5. Pantoprazole 40 mg b.i.d. 6. Venlafaxine 37.5 mg daily. 7. Zosyn 3.375 q.8. 8. Heparin 5,000 units q.8. PHYSICAL EXAMINATION: Please see my progress note from this morning. PERTINENT STUDIES ON THIS ADMISSION: An abdominal ultrasound performed on 10/08 showed biliary sludge in the gallbladder with mild gallbladder wall thickening and small volume of pericholecystic fluid. No visualized gallstones. Negative for sonographic Duran sign. Negative biliary dilatation and hepatosteatosis. LABORATORY DATA: Labs from 10/10/2019: Sodium 131, potassium 3.4, chloride 97 , bicarb 23, BUN 25, creatinine 1.77, glucose 308, calcium 8.2, magnesium 1.4, total bilirubin 2.7, AST 21, ALT 25, alk phos 71; white blood cells 21.2, hemoglobin 14.2, platelets 202; INR 1.55. CONSULTATIONS DURING THIS ADMISSION: Dr. Conor Hoskins of General Surgery. HOSPITAL COURSE BY PROBLEM: 1. Acute cholecystitis with sepsis: Mr. Schreiber was admitted to the Medical Service with acute cholecystitis and was started on Zosyn with IV fluid resuscitation for sepsis an pain control. He had minimal improvement over the first 12 hours and his white count increased. His JOEY worsened and his pain was uncontrolled. He was re-evaluated by Surgery this morning, October 09, and they recommended percutaneous drainage of the acute cholecystitis. Unfortunately, Interventional Radiology is not available [place] [facility] [place], so I have discussed the case with Dr. Zheng at [place] who accepts the patient to his service. Today is Pip/Tazo day two. This morning I have increased his volume resuscitation to normal saline at 200 cc per hour and increased his pain control to Dilaudid 1.5 mg q.4 prn pain. 2. JOEY: I got records from his PCP's office. His creatinine in June of this year was 1.2. I have increased his normal saline rate as above and I suspect this is related to sepsis. 3. Poorly controlled diabetes: Mr. Schreiber's A1c was 10 in June. He is on a lot of p.o. diabetes medications at home. I transitioned his Detemir to Lantus, but he is still uncontrolled with blood sugars in the 300s this morning. He takes his Lantus in the evening and he got 30 units last night. I gave him 15 units of NPH this morning to cover his throughout the day and increased his evening dose of Lantus tonight at 40 units nightly. He is currently on clear liquids. 4. Hypertension: He is on Losartan HCTZ at home, but I have held both of these and he has remained normotensive off of them. 5. EKG changes: He has ischemic EKG changes with Q-waves inferiorly on his EKG. His troponins were negative times three here and he has no chest pain. He recalls no history of an MS, but I suspect an occult MS which raises his operative risk as well. 6. DVT prophylaxis: He has been on Heparin subcutaneously since his arrival. 7. Code status: He is full code. He does have a named Veronica who is his healthcare proxy. CONDITION ON DISCHARGE: Fair, guarded. DISPOSITION: Mr. Schreiber has been accepted by Dr. Zheng to the Hospitalist Service at [facility] for a higher level of care and access to interventional radiology for percutaneous drainage of acute cholecystitis. [id number]/[facility] #: [id number] [facility]
[2019-10-10 11:54] VITALS: BP 136/63
--- NOTE | 2019-10-10 12:11 | ECHO ---
*[facility]* [place] [address] Fax #: [phone] Transthoracic Echocardiogram Patient: Parminder Schreiber : 1940 Study Date: 10/10/2019 Age: 79 Gender: M HR: 107 bpm Height: 72 in /182.9 cm BSA: 2.13 m^2 Weight: 200.6 lb /91.2 kg BMI: 27.3 kg/m^2 *[employer] Consultant: * Flor Smith [facility] *Referring Physician: * Jen Soares *Reading Physician: * Holli Land MD Indications: Abnormal EKG. History: Risk factors: Hypertension. Diabetes mellitus. Dyslipidemia. Conclusions Summary: - Left ventricle: The cavity size is mildly reduced. Wall thickness is mildly to moderately increased. Wall motion is normal; there are no regional wall motion abnormalities. - Right ventricle: Systolic function is normal. - Mitral valve: The leaflets are mildly thickened. - Aortic valve: Cusp separation is normal. - Tricuspid valve: There is trace regurgitation. - Pulmonary arteries: Systolic pressure is mildly increased. The peak pressure during systole by Doppler is 37.0 mm Hg. - No prior echocardiogram to compare. Study data: Transthoracic echocardiogram. Procedure: Transthoracic echocardiography was performed. Image quality was good. Complete 2D, spectral Doppler, and color flow Doppler. Location: Bedside. Patient status: Inpatient. Patient room number: 348. Rhythm: Tachycardia. Findings Left ventricle: The cavity size is mildly reduced. Wall thickness is mildly to moderately increased. Systolic function is normal. The estimated ejection fraction is 60-65%. Wall motion is normal; there are no regional wall motion abnormalities. Left ventricular diastolic function parameters are normal for the patient's age. Right ventricle: The cavity size is normal. Systolic function is normal. Left atrium: The atrium is normal in size. Right atrium: The atrium is normal in size. Mitral valve: The leaflets are mildly thickened. There is no evidence of stenosis. There is no significant regurgitation. Aortic valve: The valve is trileaflet. The leaflets are normal thickness. Cusp separation is normal. There is no evidence of stenosis. There is no significant regurgitation. Tricuspid valve: The leaflets are normal thickness. There is no evidence of stenosis. There is trace regurgitation. Pulmonic valve: The leaflets are normal thickness. There is no evidence of stenosis. There is mild regurgitation. Aorta: The aortic root appears normal. The aortic arch appears normal. Pericardium: There is no significant pericardial effusion. Pulmonary arteries: Systolic pressure is mildly increased. Systemic veins: Inferior vena cava: Not well visualized. Measurements Left ventricle Value Ref Aortic valve continued Value Ref DUC, LAX (L) 3.8 cm 4.2 - 5.8 Peak v, S 1.26 m/sec --------- ESD, LAX 2.5 cm 2.5 - 4.0 VTI, S 20.3 cm --------- FS, LAX 34 % 25 - 43 Mean grad, S 4.0 mm Hg --------- PW, ED, LAX (H) 1.2 cm 0.6 - 1.0 Peak grad, S 6.0 mm Hg --------- E', lat maite, TDI 10.2 cm/sec >=10.0 LVOT/AV, VTI 0.89 - -------- E/e', lat maite, 6 ratio TDI E', med maite, TDI 8.1 cm/sec >=7.0 Mitral valve Value R ef E/e', med maite, 8 Peak E 0.66 m/sec ---- ----- TDI Peak A 0.86 m/sec --------- E', avg, TDI 9.2 cm/sec Decel time 61 ms ---- ----- E/e', avg, TDI 7 <=14 Peak E/A ratio 0.8 - -------- LVOT Value Ref Pulmonic valve Value Ref Peak brianna, S 1 m/sec Peak v, S 0.75 m/sec --------- VTI, S 18.0 cm Peak grad, S 2.0 mm Hg --------- Peak grad, S 4 mm Hg Mean grad, S 2 mm Hg Tricuspid valve Value Ref TR peak v (H) 3 m/sec <=2.8 Ventricular septum Value Ref Peak RV-RA grad, 36 mm Hg --------- IVS, ED (H) 1.4 cm 0.6 - 1.0 S Right ventricle Value Ref Aortic root Value Ref DUC, LAX 3.7 cm Root diam 3.3 cm <4.2 DUC minor ax, A4C 3.1 cm 1.9 - 3.5 Root max 1.6 cm/m^2 1.3 - 2.1 mid diam/bsa, ED Pressure, S 39 mm Hg Ascending aorta Value Ref Left atrium Value Ref AAo AP diam, S 2.4 cm --------- AP dim, ES 4.00 cm 3.00 - AAo AP diam/bsa, 1.1 cm/m^2 --------- 4.00 S ML dim, A4C 4.0 cm SI dim, A4C 5.3 cm Aortic arch Value Ref Vol/bsa, ES, A/L 24 ml/m^2 16 - 34 Arch diam 2.8 cm --------- Arch diam/bsa 1.3 cm/m^2 --------- Right atrium Value Ref SI dim, ES 5.0 cm 3.4 - 5.3 Decending aorta Value Ref ML dim, ES, A4C 3.6 cm 2.6 - 4.4 [place] peak brianna 0.88 m/sec --------- Estimated RAP 3 mm Hg Pulmonary artery Value Ref Aortic valve Value Ref Pressure, S 37.0 mm Hg --------- Maite diam, ED 2.3 cm Legend: (L) and (H) sekou values outside specified reference range. Prepared and electronically signed by Holli Land MD 10/10/2019 12:11
[2019-10-10] MEDS ORDERED: Insulin GLARGINE(*) 1 UNITS UNIT SUBCUT SCH (20:00)
== END 2019-10-10 12:20 | disposition short-term general hospital (02) | DRG 872 ==
LOC: ED 11:42 → SSU 16:05
PROVIDERS: ADMIT Internal Medicine; ATTEND Internal Medicine
DX: A41.9 Sepsis, unspecified organism (principal); K81.0 Acute cholecystitis; N17.9 Acute kidney failure, unspecified; E78.00 Pure hypercholesterolemia, unspecified; I10 Essential (primary) hypertension; N40.0 Benign prostatic hyperplasia without lower urinary tract symptoms; E11.65 Type 2 diabetes mellitus with hyperglycemia; R94.31 Abnormal electrocardiogram [ECG] [EKG]; K76.0 Fatty (change of) liver, not elsewhere classified; J38.7 Other diseases of larynx; E78.5 Hyperlipidemia, unspecified; M47.9 Spondylosis, unspecified; J98.6 Disorders of diaphragm; E83.42 Hypomagnesemia; K21.9 Gastro-esophageal reflux disease without esophagitis; M16.0 Bilateral primary osteoarthritis of hip; M17.0 Bilateral primary osteoarthritis of knee; M19.012 Primary osteoarthritis, left shoulder; M19.011 Primary osteoarthritis, right shoulder; F32.9 Major depressive disorder, single episode, unspecified; Z88.0 Allergy status to penicillin; Z79.4 Long term (current) use of insulin
CPT/HCPCS: 36415; 71045; 76705; 80053; 81003; 81015; 82150; 82550; 82553; 82947; 83605; 83690; 83735; 83880; 84443; 84484; 85025; 85610; 85730; 86140; 87086; 90732; 93005; 93306; 96365; 99284; A9270-GY; J1170; J1644; J2270; J2543; J3475; J3480